=== PATIENT | female | born 1960 | race Caucasian/White ===

== ENCOUNTER 2023-06-16 15:39 | Inpatient (IN) | payer BC ==
[2023-06-16] MEDS ORDERED: Sodium Chloride 0.9% 10 ML Syringe FLUSH PRN ×2 (15:52→15:59)
[2023-06-16] MEDS ORDERED: Sodium Chloride 0.9% 2.5 ML Syringe FLUSH PRN ×2 (15:52→15:59)
[2023-06-16] MEDS ORDERED: Sodium Chloride 0.9% 20 ML SDV IV PRN (15:59)
[2023-06-16] MEDS ORDERED: Lactated Ringers 1,000 ML IV SCH (16:00)
[2023-06-16] MEDS ORDERED: Piperacillin/Tazobactam 3.375 GM in Sodium Chloride 0.9% 100 ML IV ONE (16:01)
[2023-06-16 16:05] LABS: BASOPHILS PERCENT AUTO 0.2 % (0.0-1.5); EOSINOPHILS ABSOLUTE AUTO 0.1 K/uL (0.0-0.7); EOSINOPHILS PERCENT AUTO 0.5 % (0.0-7.0); HEMATOCRIT 41.8 % (36.0-46.0); HEMOGLOBIN 14.6 g/dL (12.0-16.0); LYMPHOCYTES ABSOLUTE AUTO 2.6 K/uL (0.6-2.4); LYMPHOCYTES PERCENT AUTO 12.4 % (16.0-40.0); MEAN CORPUSCULAR HEMOGLOBIN 32.1 pg (27.0-32.0); MEAN CORPUSCULAR HGB CONC 34.9 g/dL (31.0-37.0); MEAN CORPUSCULAR VOLUME 91.9 fL (80.0-98.0); MONOCYTES ABSOLUTE AUTO 2.2 K/uL (0.0-0.8); MONOCYTES PERCENT AUTO 10.6 % (0.0-15.0); NEUTROPHILS ABSOLUTE AUTO 16.1 K/uL (1.4-5.7); NEUTROPHILS PERCENT AUTO 76.3 % (48.0-80.0); NRBC ABSOLUTE 0 K/uL; PLATELET COUNT,PLT 291 K/uL (150-400); RED BLOOD CELL COUNT 4.55 M/uL (4.30-5.90); WHITE BLOOD CELL COUNT,WBC 21.09 K/uL (4.0-11.0)
[2023-06-16] MEDS ORDERED: Ropivacaine 0.5% 5 MG/ML 30 ML SDV ONE (16:20)
[2023-06-16] MEDS ORDERED: Famotidine 20 MG/2 ML SDV ONE (16:20)
[2023-06-16] MEDS ORDERED: fentaNYL 250 MCG/5 ML SDV ONE ×2 (16:26→17:38)
[2023-06-16] MEDS ORDERED: Succinylcholine/Sod PF 100 MG/5 ML SYRINGE IV ONE (16:26)
[2023-06-16] MEDS ORDERED: Propofol 200 MG/20 ML SDV ONE (16:26)
[2023-06-16] MEDS ORDERED: Bupivacaine 0.5% 30 ML SDV ONE (16:27)
[2023-06-16] MEDS ORDERED: Morphine 10 MG/ML SDV ONE (16:28)
[2023-06-16] MEDS ORDERED: Water For Injection, Sterile 20 ML ONE (16:29)
[2023-06-16 16:42] LABS: A/G RATIO 0.6 (0.9-1.6); ALBUMIN 2.9 g/dL (3.4-5.0); BILIRUBIN TOTAL 0.5 mg/dL (0.2-1.0); CALCIUM 8.6 mg/dL (8.5-10.1); CARBON DIOXIDE,CO2 23.3 mmol/L (21.0-32.0); CREATININE 1.4 mg/dL (0.6-1.0); EST CRCL DRUG DOSING (CG) 29.16 mL/min; POTASSIUM,K 3.3 mmol/L (3.5-5.1); PROTEIN TOTAL,TP 7.5 g/dL (6.4-8.2)
[2023-06-16] MEDS ORDERED: fentaNYL 100 MCG/2 ML SDV ONE (17:32)
[2023-06-16] MEDS ORDERED: ceFAZolin 2 GM Vial ONE ×2 (17:34→18:45)
[2023-06-16] MEDS ORDERED: Ketamine 500 mg/10 ML MDV ONE (17:37)
[2023-06-16] MEDS ORDERED: Dexamethasone 4 MG/ML 5 ML MDV ONE (18:44)
[2023-06-16] MEDS ORDERED: Ketorolac 30 MG/ML SDV ONE (18:44)
[2023-06-16] MEDS ORDERED: Lidocaine 2% 11 ML Jelly Filled Syringe ONE (18:44)
[2023-06-16] MEDS ORDERED: ePHEDrine 50 MG/ML SDV ONE (18:44)
[2023-06-16] MEDS ORDERED: Ondansetron 4 MG/2 ML SDV ONE (18:44)
[2023-06-16] MEDS ORDERED: Sugammadex Sodium 200 MG/2 ML VIAL ONE (18:44)
[2023-06-16] MEDS ORDERED: Rocuronium Bromide 50 MG/5 ML Syringe ONE (18:44)
[2023-06-16] MEDS ORDERED: HYDROmorphone 1 MG/ML Syringe IVPUSH PRN (19:39)
[2023-06-16] MEDS ORDERED: Metoclopramide 10 MG/2 ML SDV IVPUSH PRN (19:39)
[2023-06-16] MEDS ORDERED: diphenhydrAMINE 50 MG/ML SDV IVPUSH PRN (19:39)
[2023-06-16] MEDS ORDERED: Ondansetron 4 MG/2 ML SDV IVPUSH PRN (19:39)
[2023-06-16] MEDS: Multivitamin Tab PO SCH (21:27)
[2023-06-16] MEDS: Cyclobenzaprine 10 MG Tab PO SCH (21:27)
[2023-06-16] MEDS: Lactated Ringers 1,000 ML IV SCH (21:28)
[2023-06-16] MEDS: Piperacillin/Tazobactam 4.5 GM in Sodium Chloride 0.9% 100 ML IV SCH (21:28)
[2023-06-16] MEDS: Acetaminophen 1,000 MG in Premix Bag 1 BAG IV SCH (23:36)
[2023-06-16] MEDS: Ketorolac 30 MG/ML SDV IVPUSH SCH (23:41)
[2023-06-17] MEDS: Cyclobenzaprine 10 MG Tab PO SCH ×3 (03:56→20:02)
[2023-06-17] MEDS: Acetaminophen 1,000 MG in Premix Bag 1 BAG IV SCH ×2 (05:08→11:17)
[2023-06-17] MEDS: Ketorolac 30 MG/ML SDV IVPUSH SCH ×3 (05:09→17:48)
[2023-06-17] MEDS: Piperacillin/Tazobactam 4.5 GM in Sodium Chloride 0.9% 100 ML IV SCH ×3 (05:47→21:45)
[2023-06-17 06:02] LABS: HEMATOCRIT 36.2 % (36.0-46.0); HEMOGLOBIN 12.2 g/dL (12.0-16.0); MEAN CORPUSCULAR HEMOGLOBIN 30.9 pg (27.0-32.0); MEAN CORPUSCULAR HGB CONC 33.7 g/dL (31.0-37.0); MEAN CORPUSCULAR VOLUME 91.6 fL (80.0-98.0); MEAN PLATELET VOLUME 12.1 fL (7.40-12.00); RED BLOOD CELL COUNT 3.95 M/uL (4.30-5.90); WHITE BLOOD CELL COUNT,WBC 19.59 K/uL (4.0-11.0)
[2023-06-17 06:37] LABS: CARBON DIOXIDE,CO2 24.1 mmol/L (21.0-32.0); CREATININE 0.9 mg/dL (0.6-1.0); EST CRCL DRUG DOSING (CG) 45.36 mL/min; MAGNESIUM 1.7 mg/dL (1.8-2.4); POTASSIUM,K 4.1 mmol/L (3.5-5.1)
[2023-06-17] MEDS: Omeprazole 20 MG Cap.CR PO SCH (06:39)
[2023-06-17] MEDS: Acetaminophen/oxyCODONE 325-5 MG Tab PO PRN ×2 (06:46→19:11)
[2023-06-17] MEDS: Lactated Ringers 1,000 ML IV SCH (07:34)
[2023-06-17] MEDS ORDERED: hydrALAZINE 20 MG/ML SDV IVPUSH PRN (07:40)
[2023-06-17] MEDS: Polyethylene Glycol 3350 Powder 17 GM Packet PO SCH (08:31)
[2023-06-17] MEDS ORDERED: Enoxaparin 30 MG/0.3 ML Syringe SUBCUT SCH (09:00)
[2023-06-17] MEDS ORDERED: Desflurane 240 ML Bottle ONE (09:46)
[2023-06-17] MEDS: Multivitamin Tab PO SCH (20:58)
[2023-06-18] MEDS: Cyclobenzaprine 10 MG Tab PO SCH ×3 (03:11→20:34)
[2023-06-18] MEDS: Acetaminophen/oxyCODONE 325-5 MG Tab PO PRN ×3 (03:15→23:04)
[2023-06-18 05:34] LABS: HEMATOCRIT 32.6 % (36.0-46.0); HEMOGLOBIN 10.9 g/dL (12.0-16.0); MEAN CORPUSCULAR HEMOGLOBIN 30.8 pg (27.0-32.0); MEAN CORPUSCULAR HGB CONC 33.4 g/dL (31.0-37.0); MEAN CORPUSCULAR VOLUME 92.1 fL (80.0-98.0); RED BLOOD CELL COUNT 3.54 M/uL (4.30-5.90); WHITE BLOOD CELL COUNT,WBC 15.56 K/uL (4.0-11.0)
[2023-06-18] MEDS: Piperacillin/Tazobactam 4.5 GM in Sodium Chloride 0.9% 100 ML IV SCH ×3 (06:16→22:34)
[2023-06-18] MEDS: Omeprazole 20 MG Cap.CR PO SCH (06:34)
[2023-06-18] MEDS: Polyethylene Glycol 3350 Powder 17 GM Packet PO SCH (09:34)
[2023-06-18] MEDS: Enoxaparin 40 MG/0.4 ML Syringe SUBCUT SCH (09:38)
[2023-06-18] MEDS: Multivitamin Tab PO SCH (20:34)
[2023-06-19] MEDS: Cyclobenzaprine 10 MG Tab PO SCH (03:21)
[2023-06-19] MEDS: Piperacillin/Tazobactam 4.5 GM in Sodium Chloride 0.9% 100 ML IV SCH (05:40)
[2023-06-19 05:43] LABS: HEMATOCRIT 32.2 % (36.0-46.0); HEMOGLOBIN 10.7 g/dL (12.0-16.0); MEAN CORPUSCULAR HEMOGLOBIN 30.6 pg (27.0-32.0); MEAN CORPUSCULAR HGB CONC 33.2 g/dL (31.0-37.0); MEAN PLATELET VOLUME 11.9 fL (7.40-12.00); RED BLOOD CELL COUNT 3.5 M/uL (4.30-5.90); WHITE BLOOD CELL COUNT,WBC 10.08 K/uL (4.0-11.0)
[2023-06-19] MEDS: Omeprazole 20 MG Cap.CR PO SCH (06:41)
[2023-06-19] MEDS: Enoxaparin 40 MG/0.4 ML Syringe SUBCUT SCH (09:28)
[2023-06-19] MEDS: Polyethylene Glycol 3350 Powder 17 GM Packet PO SCH (09:28)
== END 2023-06-19 10:47 | disposition home or self-care (01) | DRG 233 ==
LOC: MW.ED 15:39 → MW.SDS 16:18 → MW.MS 18:17
PROVIDERS: ADMIT Surgery; ATTEND Surgery
PROC: 0DTJ0ZZ Resection of Appendix, Open Approach (ICD-10-PCS; principal; 2023-06-16)
PROC: 0WJG4ZZ Inspection of Peritoneal Cavity, Percutaneous Endoscopic Approach (ICD-10-PCS; 2023-06-16)
DX: K35.33 Acute appendicitis with perforation, localized peritonitis, and gangrene, with abscess (principal); K42.9 Umbilical hernia without obstruction or gangrene; I10 Essential (primary) hypertension; Z88.5 Allergy status to narcotic agent; Z98.890 Other specified postprocedural states; Z87.891 Personal history of nicotine dependence
CPT/HCPCS: 00840; 36415; 64488; 80048; 80053; 83605; 83735; 84100; 85025; 85027; A9270-GY; J0131; J0330; J0690; J1100; J1650; J1885; J2270; J2405; J2543; J2704; J2795; J3010; J3490; J7030; J7120

== ENCOUNTER 2023-06-26 17:01 | Emergency (ER) | payer BC | END 2023-06-26 18:26 | disposition home or self-care (01) | LOC: MW.ED 17:01 | DX: L76.32 Postprocedural hematoma of skin and subcutaneous tissue following other procedure (principal); Z79.899 Other long term (current) drug therapy; Z88.5 Allergy status to narcotic agent | CPT/HCPCS: 99283 ==

== ENCOUNTER 2023-10-08 10:50 | Day surgery (SDC) | payer BC ==
[~2023-10-08 10:50] MED LIST: Lactated Ringers 1,000 ML IV SCH; Sodium Chloride 0.9% 10 ML Syringe FLUSH PRN; Sodium Chloride 0.9% 2.5 ML Syringe FLUSH PRN; Sodium Chloride 0.9% 20 ML SDV IV PRN
[2023-10-08] MEDS ORDERED: Propofol 200 MG/20 ML SDV ONE (11:27)
[2023-10-08] MEDS ORDERED: Lidocaine 2% 5 ML SDV ONE (11:27)
== END 2023-10-08 12:43 | disposition home or self-care (01) ==
LOC: MW.SDS 10:50
PROVIDERS: ATTEND Surgery
DX: Z12.11 Encounter for screening for malignant neoplasm of colon (principal); R19.7 Diarrhea, unspecified; R10.9 Unspecified abdominal pain; Z79.899 Other long term (current) drug therapy; Z86.010 Personal history of colon polyps
CPT/HCPCS: 45378; J2704; J7120; J3490